=== PATIENT | female | born 1990 | race Caucasian/White ===

== ENCOUNTER 2017-04-20 17:33 | Inpatient (IN) | payer MEDICAID, OTHER ==
[~2017-04-20] VITALS: Ht 154.9 cm; Wt 86.2 kg
[2017-04-20 18:07] LABS: BASOPHILS % (AUTO) 1.3 % (0.0-2.0); EOSINOPHILS % (AUTO) 0.2 % (1.0-6.0); HEMATOCRIT 37.5 % (36-46); HEMOGLOBIN 12.8 g/dL (12.0-16.0); LYMPHOCYTES # (AUTO) 2.4 K/uL (1.0-4.8); LYMPHOCYTES % (AUTO) 22.3 % (22.0-44.0); MEAN CORPUSCULAR HEMOGLOBIN 27.6 pg (26.0-34.0); MEAN CORPUSCULAR HGB CONC 34.2 G/dL (31.0-37.0); MEAN CORPUSCULAR VOLUME 81 fL (80-100); MONOCYTES # (AUTO) 0.8 K/uL (0.1-1.0); MONOCYTES % (AUTO) 7.6 % (2.0-9.0); NEUTROPHILS # (AUTO) 7.3 K/uL (1.8-7.7); NEUTROPHILS % (AUTO) 68.6 % (40.0-70.0); PLATELET COUNT (AUTO) 279 K/uL (150-450); RED BLOOD CELL COUNT(AUTO) 4.65 MIL/uL (4.00-5.20); RED CELL DISTRIBUTION WIDTH 13.8 % (11.5-14.5)
[2017-04-20 18:20] LABS: ANION GAP 9 mmol/L (8-16); CALCIUM, TOTAL 9.1 mg/dL (8.8-10.5); CARBON DIOXIDE 26 mmol/L (22-29); CHLORIDE 101 mmol/L (98-107); GLOMERULAR FILTR. RATE CALC > 60 mL/min (>60); GLUCOSE,RANDOM 87 mg/dL (70-110); POTASSIUM 3.7 mmol/L (3.5-5.1); SODIUM SERUM 136 mmol/L (136-145); UREA NITROGEN, BLOOD 8 mg/dL (7-18)
[2017-04-20 18:24] LABS: ALANINE AMINOTRANSFERASE 34 U/L (12-78); ALBUMIN 3.9 g/dL (3.4-5.0); ALKALINE PHOSPHATASE 119 U/L (46-116); ASPARTATE AMINOTRANSFERASE 18 U/L (15-37); BILIRUBIN,TOTAL 0.6 mg/dL (0.1-1.0); TOTAL PROTEIN, SERUM 8.2 g/dL (6.4-8.2)
[2017-04-20 19:06] LABS: BARBITURATE SCREEN, URINE NEGATIVE (NEGATIVE); BENZODIAZEPINES SCREEN,URINE NEGATIVE (NEGATIVE); CANNABINOID SCREEN,URINE NEGATIVE (NEGATIVE); COCAINE SCREEN,URINE NEGATIVE (NEGATIVE); METHADONE SCREEN, URINE NEGATIVE (NEGATIVE); OPIATE SCREEN,URINE NEGATIVE (NEGATIVE)
[2017-04-20 19:19] LABS: AMPHET/METH SCREEN,URINE NEGATIVE (NEGATIVE)
[2017-04-20 19:20] LABS: PHENCYCLIDINE SCREEN,URINE NEGATIVE (NEGATIVE)
[2017-04-20] MEDS ORDERED: ZOLPIDEM TARTRATE 10 MG TABLET PO PRN (20:30)
[2017-04-20] MEDS ORDERED: LORazepam 2 MG TABLET PO PRN (20:30)
[2017-04-20] MEDS ORDERED: HALOPERIDOL 5 MG TABLET PO PRN (20:30)
[2017-04-21 02:04] VITALS: BP 110/63
[2017-04-21 06:59] LABS: CHOL/HDL RATIO 3.7 (3.9-5.7)
[2017-04-21] MEDS ORDERED: ONDANSETRON HCL 4 MG TABLET PO PRN (07:00)
[2017-04-21] MEDS ORDERED: IBUPROFEN 600 MG TABLET PO PRN (07:00)
[2017-04-21] MEDS ORDERED: ACETAMINOPHEN 325 MG TABLET PO PRN (07:00)
[2017-04-21] MEDS ORDERED: PETROLATUM,WHITE 71 GM JELLY TP PRN (07:00)
[2017-04-21] MEDS ORDERED: CloNIDine HCL 0.1 MG TABLET PO PRN (07:00)
[2017-04-21] MEDS ORDERED: MAG HYDROX/AL HYDROX/SIMETH ES 30 ML SUSPENSION UDCUP PO PRN (07:00)
[2017-04-21] MEDS ORDERED: BENZOCAINE/MENTHOL LOZENGE [8 LOZENGES/PACKET] MM PRN (07:00)
[2017-04-21] MEDS ORDERED: MAGNESIUM HYDROXIDE SUSPENSION 30 ML UDCUP PO PRN (07:00)
[2017-04-21] MEDS ORDERED: BACITRACIN 28.4 GM OINTMENT TP PRN (07:00)
[2017-04-21] MEDS ORDERED: LOPERAMIDE HCL 2 MG CAPSULE PO PRN (07:00)
[2017-04-21] MEDS ORDERED: ALBUTEROL SULFATE HFA 90 MCG/PUFF 8 GM INHALER IH PRN (07:00)
[2017-04-21 09:51] VITALS: BP 124/68
[2017-04-21 17:11] VITALS: BP 117/83
[2017-04-22 04:01] VITALS: BP 140/92
[2017-04-22 09:03] VITALS: BP 125/82
[2017-04-22 17:56] VITALS: BP 121/72
[2017-04-23 05:44] VITALS: BP_SYST 114; BP_SYST 124; BP_DIAS 65; BP_DIAS 70
[2017-04-23 08:00] VITALS: BP 140/76
[2017-04-23 20:48] VITALS: BP 139/72
[2017-04-24 11:46] VITALS: BP 136/78
[2017-04-25 00:45] VITALS: BP 134/72
[2017-04-25 11:41] VITALS: BP 152/94
[2017-04-25 16:14] VITALS: BP 133/74
[2017-04-25] MEDS: DIVALPROEX SODIUM 500 MG ER TABLET PO SCH (17:00)
[2017-04-26 08:05] VITALS: BP 126/88
[2017-04-26] MEDS ORDERED: ARIP5TAB8 PO (08:32)
[2017-04-26] MEDS ORDERED: DIVA500T52 PO (08:33)
[2017-04-26] MEDS ORDERED: ARIPiprazole 5 MG TABLET PO SCH (09:00)
[2017-04-26] MEDS: DIVALPROEX SODIUM 500 MG ER TABLET PO SCH (09:28)
== END 2017-04-26 10:45 | disposition home or self-care (01) | DRG 750 ==
LOC: EMS 17:36 → 3EI 04-21 00:30
PROVIDERS: ADMIT Psychiatry & Neurology Psychiatry; ATTEND Psychiatry & Neurology Psychiatry
DX: F20.0 Paranoid schizophrenia (principal); R45.851 Suicidal ideations; Z59.0 Homelessness; E66.9 Obesity, unspecified; G47.00 Insomnia, unspecified; K59.00 Constipation, unspecified; Z68.35 Body mass index [BMI] 35.0-35.9, adult
CPT/HCPCS: 99285; G0480